=== PATIENT | female | born 1965 | race Caucasian/White ===

== ENCOUNTER 2020-02-16 17:45 | Inpatient (IN) ==
--- NOTE | 2020-02-16 18:25 | ERNOTE ---
Dyspnea - Date Date of Service: 02/16/20 - General Presenting Symptoms: shortness of breath, difficulty of breathing, wheezing Time Seen by Provider: 02/16/20 18:02 Source: patient Exam Limitations: no limitations - Immun/Allergies/Home Medications Immunizations: IMMUNIZATION HX Immunizations Up to Date Yes History of Influenza Vaccine Yes Hx Pneumococcal Vaccination Yes Allergies/Adverse Reactions: Allergies Penicillins Adverse Reaction (Verified 01/25/20 11:07) Home Medications: HOME MEDICATIONS Aspirin [Aspirin Chewable] 81 mg PO DAILY 06/28/15 [Last Taken Unknown] Calcium Carb, Citrate/Vit D3 [Calcium + D3 ER Tablet] 1 ea PO DAILY 06/28/15 [Last Taken Unknown] Mv,Calcium,Min/Iron/Folic/Vitk [Essential Woman Tablet] 1 ea PO DAILY 06/28/15 [Last Taken Unknown] anakinra 100 mg/0.67 mL subcutaneous syringe 100 mg SUBCUT DAILY 06/16/18 [Last Taken Unknown] hydrochlorothiazide 25 mg tablet See Rx Instructions .ROUTE .COMPLEX #30 unknown measurement unit code: tablet 01/03/20 [Last Taken Unknown] metformin 500 mg tablet See Rx Instructions .ROUTE .COMPLEX #120 unknown measurement unit code: tablet 01/19/20 [Last Taken Unknown] prednisone 10 mg tablet 10 mg PO DAILY #5 tab 01/22/20 [Last Taken Unknown] glipizide 10 mg tablet See Rx Instructions .ROUTE .COMPLEX #90 unknown measurement unit code: tablet 02/05/20 [Last Taken Unknown] levothyroxine 100 mcg tablet See Rx Instructions .ROUTE .COMPLEX #30 unknown measurement unit code: tablet 02/05/20 [Last Taken Unknown] lisinopril 5 mg tablet See Rx Instructions .ROUTE .COMPLEX #30 unknown measurement unit code: tablet 02/05/20 [Last Taken Unknown] paroxetine HCl 20 mg tablet See Rx Instructions .ROUTE .COMPLEX #30 unknown measurement unit code: tablet 02/05/20 [Last Taken Unknown] simvastatin 20 mg tablet See Rx Instructions .ROUTE .COMPLEX #30 unknown measurement unit code: tablet 02/05/20 [Last Taken Unknown] pioglitazone 15 mg tablet 15 mg PO DAILY #30 tab 02/09/20 [Last Taken Unknown] - History of Present Illness Narrative: patient tested positive for ordoñez virus on jan 24, has continued to be sob although has improved over last several days, comes to ed with o2 sats inmid 80's Severity: moderate Treatment GENERAL AGENT: none Initiating event: Reports: upper resp illness Frequency of episodes: Reports: no prior episodes Modifying Factors - (Improves): Reports: nothing Modifying Factors (Worsens): Reports: nothing Associated Symptoms-Dyspnea: Reports: cough, wheezing, dizziness, lightheadedness, weakness Review of Systems - Review of Systems Constitutional: Present: See HPI, weakness, fatigue, malaise EYE: Present: no symptoms reported ENT: Present: no symptoms reported Respiratory: Present: See HPI, shortness of breath, cough Cardiology: Present: no symptoms reported Gastrointestinal/Abdominal: Present: no symptoms reported Genitourinary: Present: no symptoms reported Musculoskeletal: Present: no symptoms reported Skin: Present: no symptoms reported Neurological: Present: no symptoms reported Endocrine: Present: no symptoms reported Hematologic/Lymphatic: Present: no symptoms reported Psych: Present: no symptoms reported All Other Systems: All systems neg except as marked Medical History (Last Reviewed 02/16/20 @ 17:49 by Jose Ortega RN) Rheumatoid arthritis (Chronic) Onset Date: ~2009 Morbid obesity (Chronic) Onset Date: Unknown Hypertension (Chronic) Onset Date: Unknown Hyperlipidemia (Chronic) Onset Date: ~2014 Type 2 diabetes mellitus (Chronic) Onset Date: Unknown Depression (Chronic) Onset Date: Unknown Surgical History: Surgical History (Last Reviewed 02/16/20 @ 17:49 by Jose Ortega RN) History of back surgery Onset Date: 11/02/14 L4 joon laminectomy and L4 L5 facetectomy. Left L4 L5 microdisectomy. Dr Mazariegos History of section Onset Date: Unknown 1987,1993,1999 History of laparoscopy Onset Date: ~2009 History of ovarian cystectomy Onset Date: 01/01/10 History of salpingectomy Onset Date: 01/01/10 left History of salpingo-oophorectomy Onset Date: 01/01/10 History of thyroid surgery Onset Date: ~2005 removed one lobe-pt unsure why History of tonsillectomy and adenoidectomy Onset Date: ~1969 History of wisdom tooth extraction Onset Date: ~1989 Family History: Family History (Last Reviewed 02/16/20 @ 17:49 by oJse Ortega RN) Father Cancer melanoma Mother Diabetes Hypertension Social History: (Last Reviewed 02/16/20 @ 17:49 by Jose Ortega RN) Social History: Marital status: lives independently: Yes Service: No Tobacco: Smoking Status: Never smoker Alcohol: alcohol intake: current alcohol intake frequency: a few times a month Substance Use: substance use type: does not use Dietary Habits: caffeine: Yes Physical Exam - Physical Exam General Appearance: Present: moderate distress, anxious Head Exam: Present: normal inspection, no evidence of injury Eye Exam: Normal inspection: bilateral, PERRL: bilateral, EOMI: bilateral Ears, Nose, Throat: Present: normal ENT inspection, normal pharynx Neck: Present: normal inspection, nontender Respiratory: Present: respiratory distress, crackles, rales, rhonchi Cardiovascular/Chest: Present: regular rate, rhythm, no murmur, normal peripheral pulses Gastrointestinal/Abdominal: Present: normal bowel sounds, nontender, nondistended, soft, no organomegaly Back Exam: Present: normal inspection, normal range of motion, no CVA tenderness, no vertebral tenderness Extremity Exam: Present: normal inspection, non-tender, normal range of motion, no edema Neurological Exam: Present: alert, oriented, normal mood/affect, no motor/sensory deficits Skin Exam: Present: normal color, warm/dry Lymphatic Exam: Present: no adenopathy Progress - Date and Time Seen: Date and Time: 02/16/20 19:16 condition unchanged case discussed with dr kurtz, accepted for admission - Results and Orders Patient's Lab Results:: I have reviewed the patient's lab results. - Vital Signs Vital Signs: Vital Signs 02/16/20 17:46 02/16/20 17:57 Temperature 37.2 C Pulse Rate 96 98 Respiratory Rate 30 H Blood Pressure 136/73 O2 Sat by Pulse Oximetry 86 L - EKG EKG #1 EKG: NSR - X-Ray X-Ray #1 X-Ray: chest Interpretation: Discd w/ radiologist - bilateral pneumonia worse on left - Progress/Reassessment Chief Complaint: Dyspnea Progress:: Unchanged - Transfer of Care Expected Disposition: Admit Plan - Plan Plan: to admit to hospital Departure Clinical Impression: COVID-19, Pneumonia - Departure Disposition: Short Term Hospital Inpatient Condition: Serious Referrals: Rachael Kyle MD [Primary Care Provider] -
[2020-02-16 18:26] LABS: Hematocrit 43.8 % (37.0-47.0); Hemoglobin 13.9 gm/dL (12.5-16.0); Mean Cell Volume 86.1 fl (78-100); Mean Corpuscular Hemoglobin 27.3 pg (27-31); Mean Corpuscular Hgb Conc 31.7 g/dl (32-36); Mean Platelet Volume 11.1 fl (8-12.5); Neutrophil # 3.5 K/mm3 (1.3-6.0); Neutrophil % 58.3 % (42-75.0); Platelet Count 186 K/mm3 (150-450); Red Blood Count 5.09 M/mm3 (4.2-5.4); Red Cell Distribution Width 14.6 % (11.5-14.0)
[2020-02-16 18:46] LABS: ALT 28 U/L (19-67); AST 21 U/L (0-48); Albumin * 2.6 gm/dl (3.4-5.0); Alkaline Phosphatase * 143 U/L (50-170); Anion Gap 11.5 mmol/L (6.8-13.8); BNP * 38 pg/mL (5-150); BUN/Creatinine Ratio 13.3 (9.0-21.6); Bilirubin, Total 0.3 mg/dL (0.0-1.1); Blood Urea Nitrogen 10 mg/dL (3-23); Ca. Corrected For Albumin 12.1 mg/dL (8.4-10.2); Calcium * 11.3 mg/dL (7.9-10.9); Carbon Dioxide 26.8 mmol/L (24-32.6); Chloride 102 mmol/L (97-106); Glucose * 247 mg/dL (70-110); Potassium 3.3 mmol/L (3.4-4.6); Sodium 137 mmol/L (132-142); Total Protein 6.9 gm/dL (6.2-8.2); Troponin I Less than 0.017 ng/mL (0.00-0.10)
[2020-02-16] MEDS ORDERED: DEXAMETHASONE SODIUM PHOSP/PF 10 MG/ML VIAL IV ONE (19:14)
[2020-02-16] MEDS: AZITHROMYCIN 500 MG in DEXTROSE 5 % IN WATER 250 ML IV SCH ×2 (19:41)
[2020-02-16] MEDS: NORMAL SALINE 1,000 ML IV PRN (19:42)
[2020-02-16] MEDS ORDERED: metFORMIN HCL 500 MG TABLET PO SCH (19:45)
[2020-02-16] MEDS ORDERED: LISINOPRIL 5 MG TABLET PO SCH ×2 (19:45→21:00)
[2020-02-16] MEDS ORDERED: glipiZIDE 10 MG TABLET PO SCH (19:45)
[2020-02-16] MEDS ORDERED: HYDROCHLOROTHIAZIDE 25 MG TABLET PO SCH (19:45)
[2020-02-16] MEDS ORDERED: PARoxetine HCL 20 MG TABLET PO SCH (19:45)
[2020-02-16] MEDS ORDERED: ANAKINRA 100 MG SQ SCH (21:00)
[2020-02-16] MEDS: ASPIRIN 81 MG TABLET.DR PO SCH (21:05)
[2020-02-16] MEDS: LORATADINE 10 MG TABLET PO SCH (21:05)
[2020-02-16] MEDS: INSULIN LISPRO 100 UNITS/ML VIAL SC SCH (21:06)
[2020-02-16] MEDS: metFORMIN HCL 500 MG TABLET PO SCH (21:06)
[2020-02-16] MEDS: PARoxetine HCL 20 MG TABLET PO SCH (21:07)
[2020-02-16] MEDS: SIMVASTATIN 20 MG TABLET PO SCH (21:08)
[2020-02-17] MEDS: NORMAL SALINE 1,000 ML IV PRN (04:06)
[2020-02-17] MEDS ORDERED: LEVOTHYROXINE SODIUM 100 MCG TABLET PO SCH (06:00)
--- NOTE | 2020-02-17 07:01 | HP ---
Chief Complaint - Chief Complaint Date of Service: 02/17/20 Time of Service: 06:59 Chief Complaint: dyspnea History of Present Illness: Patient with PMHx of rheumatoid arthritis on anikinra and prednisone, HTN, DM, obesity presents with dyspnea. She tested positive for COVID-19 on January 24, 23 days prior to admission. Medical History (Last Reviewed 02/16/20 @ 17:49 by Jose Ortega RN) Rheumatoid arthritis (Chronic) Onset Date: ~2009 Morbid obesity (Chronic) Onset Date: Unknown Hypertension (Chronic) Onset Date: Unknown Hyperlipidemia (Chronic) Onset Date: ~2014 Type 2 diabetes mellitus (Chronic) Onset Date: Unknown Depression (Chronic) Onset Date: Unknown Surgical History: Surgical History (Last Reviewed 02/16/20 @ 17:49 by Jose Ortega RN) History of back surgery Onset Date: 11/02/14 L4 joon laminectomy and L4 L5 facetectomy. Left L4 L5 microdisectomy. Dr Mazariegos History of section Onset Date: Unknown 1987,1993,1999 History of laparoscopy Onset Date: ~2009 History of ovarian cystectomy Onset Date: 01/01/10 History of salpingectomy Onset Date: 01/01/10 left History of salpingo-oophorectomy Onset Date: 01/01/10 History of thyroid surgery Onset Date: ~2005 removed one lobe-pt unsure why History of tonsillectomy and adenoidectomy Onset Date: ~1969 History of wisdom tooth extraction Onset Date: ~1989 Family History: Family History (Last Reviewed 02/16/20 @ 17:49 by Jose Ortega RN) Father Cancer melanoma Mother Diabetes Hypertension Social History: (Last Reviewed 02/16/20 @ 17:49 by Jose Ortega RN) Social History: Marital status: lives independently: Yes Service: No Tobacco: Smoking Status: Never smoker Alcohol: alcohol intake: current alcohol intake frequency: a few times a month Substance Use: substance use type: does not use Dietary Habits: caffeine: Yes Immunizations: IMMUNIZATION HX Immunizations Up to Date Yes History of Influenza Vaccine Yes Hx Pneumococcal Vaccination Yes Allergies/Adverse Reactions: Allergies Allergy/AdvReac Type Severity Reaction Status Date / Time Penicillins AdvReac Verified 01/25/20 11:07 Home Medications: HOME MEDICATIONS Aspirin [Aspirin Chewable] 81 mg PO HS 06/28/15 [Last Taken Unknown] anakinra 100 mg/0.67 mL subcutaneous syringe 100 mg SUBCUT HS 06/16/18 [Last Taken Unknown] pioglitazone 15 mg tablet 15 mg PO DAILY #30 tab 02/09/20 [Last Taken Unknown] Famotidine 20 mg PO HS 02/16/20 [Last Taken Unknown] Levothyroxine Sodium [Levo-T] 100 mcg PO DAILY 02/16/20 [Last Taken Unknown] Lisinopril [Zestril] 5 mg PO HS 02/16/20 [Last Taken Unknown] Loratadine 10 mg PO HS 02/16/20 [Last Taken Unknown] PARoxetine HCL [Paxil] 20 mg PO HS 02/16/20 [Last Taken Unknown] Simvastatin [Zocor] 20 mg PO HS 02/16/20 [Last Taken Unknown] metFORMIN HCL [Metformin HCl] 1,000 mg PO BID 02/16/20 [Last Taken Unknown] Hydrochlorothiazide [Hydrodiuril] 25 mg PO DAILY 02/17/20 [Last Taken Unknown] glipiZIDE [Glipizide] 10 mg PO TID 02/17/20 [Last Taken Unknown] Exam - Exam Vital Signs: Vital Signs - Last Taken Temp 36.9 C 02/17/20 02:35 Pulse 80 02/17/20 02:35 Resp 24 H 02/17/20 02:35 BP 156/72 H 02/17/20 02:35 Pulse Ox 93 02/17/20 02:35 Diagnostic Studies: Abnormal Lab Results 02/16/20 02/16/20 02/16/20 Range/Units 18:19 18:19 18:32 MCHC 31.7 L (32-36) g/dl RDW 14.6 H (11.5-14.0) % Immature Gran % (Auto) 0.70 H (0.001-0.429) % Immature Gran # (Auto) 0.04 H (0.000-0.0310) K/mm3 Monocytes % 15.0 H (0.0-9) % Eosinophils % 4.5 H (0.0-3.0) % Lymphocytes # 1.22 L (1.5-3.5) k/mm3 pO2 65.2 L (83.0-108.0) mmHg Total CO2 25.0 H (19.0-24.0) mmol/L ABG pH 7.47 H (7.35-7.45) Potassium 3.3 L (3.4-4.6) mmol/L Random Glucose 247 H (70-110) mg/dL Calcium 11.3 H (7.9-10.9) mg/dL Calcium Adj for Albumin 12.1 H (8.4-10.2) mg/dL Albumin 2.6 L (3.4-5.0) gm/dl Laboratory Results WBC 6.0 K/mm3 (4.0-10.5) 02/16/20 18:19 RBC 5.09 M/mm3 (4.2-5.4) 02/16/20 18:19 Hgb 13.9 gm/dL (12.5-16.0) 02/16/20 18:19 Hct 43.8 % (37.0-47.0) 02/16/20 18:19 MCV 86.1 fl (78-100) 02/16/20 18:19 MCH 27.3 pg (27-31) 02/16/20 18:19 MCHC 31.7 g/dl (32-36) L 02/16/20 18:19 RDW 14.6 % (11.5-14.0) H 02/16/20 18:19 Plt Count 186 K/mm3 (150-450) 02/16/20 18:19 MPV 11.1 fl (8-12.5) 02/16/20 18:19 Immature Gran % (Auto) 0.70 % (0.001-0.429) H 02/16/20 18:19 Immature Gran # (Auto) 0.04 K/mm3 (0.000-0.0310) H 02/16/20 18:19 Neutrophils % 58.3 % (42-75.0) 02/16/20 18:19 Lymphocytes % 20.5 % (20-51) 02/16/20 18:19 Monocytes % 15.0 % (0.0-9) H 02/16/20 18:19 Eosinophils % 4.5 % (0.0-3.0) H 02/16/20 18:19 Basophils % 1.0 % (0.0-1.0) 02/16/20 18:19 Nucleated RBC % 0.0 k/mm3 (0-1) 02/16/20 18:19 Neutrophils # 3.5 K/mm3 (1.3-6.0) 02/16/20 18:19 Lymphocytes # 1.22 k/mm3 (1.5-3.5) L 02/16/20 18:19 Monocytes # 0.9 k/mm3 (0.0-1.0) 02/16/20 18:19 Eosinophils # 0.3 k/mm3 (0.0-0.7) 02/16/20 18:19 Absolute Basophils 0.1 k/mm3 (0.0-0.1) 02/16/20 18:19 pCO2 33.7 mmHg (32.0-45.0) 02/16/20 18:32 pO2 65.2 mmHg (83.0-108.0) L 02/16/20 18:32 HCO3 23.9 mmol/L (21.0-28.0) 02/16/20 18:32 Total CO2 25.0 mmol/L (19.0-24.0) H 02/16/20 18:32 Base Excess 0.8 mmol/L (-2.0-3.0) 02/16/20 18:32 ABG pH 7.47 (7.35-7.45) H 02/16/20 18:32 ABG O2 Sat (Measured) 94.1 % (94.0-98.0) 02/16/20 18:32 Sodium 137 mmol/L (132-142) 02/16/20 18:19 Plasma Sodium 139 mmol/L (130-142) 02/16/20 18:19 Potassium 3.3 mmol/L (3.4-4.6) L 02/16/20 18:19 Chloride 102 mmol/L (97-106) 02/16/20 18:19 Carbon Dioxide 26.8 mmol/L (24-32.6) 02/16/20 18:19 Anion Gap 11.5 mmol/L (6.8-13.8) 02/16/20 18:19 BUN 10 mg/dL (3-23) 02/16/20 18:19 Creatinine 0.75 mg/dL (0.4-1.4) 02/16/20 18:19 Est GFR (Non-Af Amer) 86 mL/min (60-130) D 02/16/20 18:19 BUN/Creatinine Ratio 13.3 (9.0-21.6) 02/16/20 18:19 Random Glucose 247 mg/dL (70-110) H 02/16/20 18:19 Lactic Acid, Venous 1.7 mmol/L (0.4-2.0) 02/16/20 18:19 Calcium 11.3 mg/dL (7.9-10.9) H 02/16/20 18:19 Calcium Adj for Albumin 12.1 mg/dL (8.4-10.2) H 02/16/20 18:19 Total Bilirubin 0.3 mg/dL (0.0-1.1) 02/16/20 18: AST 21 U/L (0-48) 02/16/20 18: ALT 28 U/L (19-67) 02/16/20 18:19 Alkaline Phosphatase 143 U/L (50-170) 02/16/20 18:19 Troponin I Less than 0.017 ng/mL (0.00-0.10) 02/16/20 18: B-Natriuretic Peptide 38 pg/mL (5-150) 02/16/20 18:19 Total Protein 6.9 gm/dL (6.2-8.2) 02/16/20 18: Albumin 2.6 gm/dl (3.4-5.0) L 02/16/20 18:19
[2020-02-17] MEDS: INSULIN LISPRO 100 UNITS/ML VIAL SC SCH ×5 (07:15→20:48)
--- NOTE | 2020-02-17 07:29 | HP ---
Chief Complaint - Chief Complaint Date of Service: 02/17/20 Time of Service: 07:15 Chief Complaint: dyspnea History of Present Illness: Patient with PMHx of rheumatoid arthritis on anikinra, HTN, DM, obesity presents with dyspnea. She tested positive for COVID-19 on January 24, 23 days prior to admission. She was trying to recover at home. She was able to go back to work this past week, but developed increased shortness of breath. She was only able to take a couple of steps before getting very winded. In the ED, she had some tachypnea and brief tachycardia, with heart rate up to 109. She has been afebrile. Denies CP, sore throat, abdominal pain. She had some diarrhea yesterday. White blood cell count is not elevated at lactate is not elevated at 1.7. Blood pressure has been mildly high. Diffuse consolidations present on he r chest x-ray. She was requiring oxygen by nasal cannula, maximum of 2 L. Her oxygen was low in the ED at 86%. She was started on IV decadron, rocephin, and azithromycin. This morning on my exam, she reports not yet feeling better. Her oxygen requirement has decreased to 1 L via NC. She does not appear acutely ill on exam. Medical History (Last Reviewed 02/16/20 @ 17:49 by Jose Ortega RN) Rheumatoid arthritis (Chronic) Onset Date: ~2009 Morbid obesity (Chronic) Onset Date: Unknown Hypertension (Chronic) Onset Date: Unknown Hyperlipidemia (Chronic) Onset Date: ~2014 Type 2 diabetes mellitus (Chronic) Onset Date: Unknown Depression (Chronic) Onset Date: Unknown Surgical History: Surgical History (Last Reviewed 02/16/20 @ 17:49 by Jose Ortega RN) History of back surgery Onset Date: 11/02/14 L4 joon laminectomy and L4 L5 facetectomy. Left L4 L5 microdisectomy. Dr Mazariegos History of section Onset Date: Unknown 1987,1993,1999 History of laparoscopy Onset Date: ~2009 History of ovarian cystectomy Onset Date: 01/01/10 History of salpingectomy Onset Date: 01/01/10 left History of salpingo-oophorectomy Onset Date: 01/01/10 History of thyroid surgery Onset Date: ~2005 removed one lobe-pt unsure why History of tonsillectomy and adenoidectomy Onset Date: ~1969 History of wisdom tooth extraction Onset Date: ~1989 Family History: Family History (Last Reviewed 02/16/20 @ 17:49 by Jose Ortega RN) Father Cancer melanoma Mother Diabetes Hypertension Social History: (Last Reviewed 02/16/20 @ 17:49 by Jose Ortega RN) Social History: Marital status: lives independently: Yes Service: No Tobacco: Smoking Status: Never smoker Alcohol: alcohol intake: current alcohol intake frequency: a few times a month Substance Use: substance use type: does not use Dietary Habits: caffeine: Yes Review Of Systems (GEN) - Review of Systems Generalized/Overall Review: Present: Weight loss. Absent: Fever Respiratory: Present: Cough, Shortness of Breath Cardiac: Absent: Chest Pain, Edema Abdominal: Present: Diarrhea. Absent: Vomiting Genitourinary: Present: No Symptoms Reported Musculoskeletal: Present: Joint Pain Neurological: Present: No Symptoms Reported Skin: Present: No Symptoms Reported Immunizations: IMMUNIZATION HX Immunizations Up to Date Yes History of Influenza Vaccine Yes Hx Pneumococcal Vaccination Yes Allergies/Adverse Reactions: Allergies Allergy/AdvReac Type Severity Reaction Status Date / Time Penicillins AdvReac Verified 01/25/20 11:07 Home Medications: HOME MEDICATIONS Aspirin [Aspirin Chewable] 81 mg PO HS 06/28/15 [Last Taken Unknown] anakinra 100 mg/0.67 mL subcutaneous syringe 100 mg SUBCUT HS 06/16/18 [Last Taken Unknown] pioglitazone 15 mg tablet 15 mg PO DAILY #30 tab 02/09/20 [Last Taken Unknown] Famotidine 20 mg PO HS 02/16/20 [Last Taken Unknown] Levothyroxine Sodium [Levo-T] 100 mcg PO DAILY 02/16/20 [Last Taken Unknown] Lisinopril [Zestril] 5 mg PO HS 02/16/20 [Last Taken Unknown] Loratadine 10 mg PO HS 02/16/20 [Last Taken Unknown] PARoxetine HCL [Paxil] 20 mg PO HS 02/16/20 [Last Taken Unknown] Simvastatin [Zocor] 20 mg PO HS 02/16/20 [Last Taken Unknown] metFORMIN HCL [Metformin HCl] 1,000 mg PO BID 02/16/20 [Last Taken Unknown] Hydrochlorothiazide [Hydrodiuril] 25 mg PO DAILY 02/17/20 [Last Taken Unknown] glipiZIDE [Glipizide] 10 mg PO TID 02/17/20 [Last Taken Unknown] Exam - Exam Vital Signs: Vital Signs - Last Taken Temp 36.4 C 02/17/20 07:05 Pulse 94 02/17/20 07:05 Resp 24 H 02/17/20 07:05 BP 133/70 02/17/20 07:05 Pulse Ox 92 L 02/17/20 07:05 Constitutional: Present: Alert, Cooperative, No distress, Morbidly obese Respiratory: Present: no respiratory distress, No rales, No wheezing, other - wearing 1 L via NC Cardiovascular/Chest: Present: regular rate, rhythm Abdomen: Present: soft, nontender, obese Extremity: Absent: lower extremity edema Neurologic: Present: normal mood/affect Eye contact: Present: cooperative, good eye contact Diagnostic Studies: Abnormal Lab Results 02/16/20 02/16/20 02/16/20 Range/Units 18:19 18:19 18:32 MCHC 31.7 L (32-36) g/dl RDW 14.6 H (11.5-14.0) % Immature Gran % (Auto) 0.70 H (0.001-0.429) % Immature Gran # (Auto) 0.04 H (0.000-0.0310) K/mm3 Monocytes % 15.0 H (0.0-9) % Eosinophils % 4.5 H (0.0-3.0) % Lymphocytes # 1.22 L (1.5-3.5) k/mm3 pO2 65.2 L (83.0-108.0) mmHg Total CO2 25.0 H (19.0-24.0) mmol/L ABG pH 7.47 H (7.35-7.45) Potassium 3.3 L (3.4-4.6) mmol/L Random Glucose 247 H (70-110) mg/dL Calcium 11.3 H (7.9-10.9) mg/dL Calcium Adj for Albumin 12.1 H (8.4-10.2) mg/dL Albumin 2.6 L (3.4-5.0) gm/dl Laboratory Results WBC 6.0 K/mm3 (4.0-10.5) 02/16/20 18:19 RBC 5.09 M/mm3 (4.2-5.4) 02/16/20 18:19 Hgb 13.9 gm/dL (12.5-16.0) 02/16/20 18:19 Hct 43.8 % (37.0-47.0) 02/16/20 18:19 MCV 86.1 fl (78-100) 02/16/20 18:19 MCH 27.3 pg (27-31) 02/16/20 18:19 MCHC 31.7 g/dl (32-36) L 02/16/20 18:19 RDW 14.6 % (11.5-14.0) H 02/16/20 18:19 Plt Count 186 K/mm3 (150-450) 02/16/20 18:19 MPV 11.1 fl (8-12.5) 02/16/20 18:19 Immature Gran % (Auto) 0.70 % (0.001-0.429) H 02/16/20 18:19 Immature Gran # (Auto) 0.04 K/mm3 (0.000-0.0310) H 02/16/20 18:19 Neutrophils % 58.3 % (42-75.0) 02/16/20 18:19 Lymphocytes % 20.5 % (20-51) 02/16/20 18:19 Monocytes % 15.0 % (0.0-9) H 02/16/20 18:19 Eosinophils % 4.5 % (0.0-3.0) H 02/16/20 18:19 Basophils % 1.0 % (0.0-1.0) 02/16/20 18:19 Nucleated RBC % 0.0 k/mm3 (0-1) 02/16/20 18:19 Neutrophils # 3.5 K/mm3 (1.3-6.0) 02/16/20 18:19 Lymphocytes # 1.22 k/mm3 (1.5-3.5) L 02/16/20 18:19 Monocytes # 0.9 k/mm3 (0.0-1.0) 02/16/20 18:19 Eosinophils # 0.3 k/mm3 (0.0-0.7) 02/16/20 18:19 Absolute Basophils 0.1 k/mm3 (0.0-0.1) 02/16/20 18:19 pCO2 33.7 mmHg (32.0-45.0) 02/16/20 18:32 pO2 65.2 mmHg (83.0-108.0) L 02/16/20 18:32 HCO3 23.9 mmol/L (21.0-28.0) 02/16/20 18:32 Total CO2 25.0 mmol/L (19.0-24.0) H 02/16/20 18:32 Base Excess 0.8 mmol/L (-2.0-3.0) 02/16/20 18:32 ABG pH 7.47 (7.35-7.45) H 02/16/20 18:32 ABG O2 Sat (Measured) 94.1 % (94.0-98.0) 02/16/20 18:32 Sodium 137 mmol/L (132-142) 02/16/20 18:19 Plasma Sodium 139 mmol/L (130-142) 02/16/20 18:19 Potassium 3.3 mmol/L (3.4-4.6) L 02/16/20 18:19 Chloride 102 mmol/L (97-106) 02/16/20 18:19 Carbon Dioxide 26.8 mmol/L (24-32.6) 02/16/20 18:19 Anion Gap 11.5 mmol/L (6.8-13.8) 02/16/20 18:19 BUN 10 mg/dL (3-23) 02/16/20 18:19 Creatinine 0.75 mg/dL (0.4-1.4) 02/16/20 18:19 Est GFR (Non-Af Amer) 86 mL/min (60-130) D 02/16/20 18:19 BUN/Creatinine Ratio 13.3 (9.0-21.6) 02/16/20 18:19 Random Glucose 247 mg/dL (70-110) H 02/16/20 18:19 Lactic Acid, Venous 1.7 mmol/L (0.4-2.0) 02/16/20 18:19 Calcium 11.3 mg/dL (7.9-10.9) H 02/16/20 18:19 Calcium Adj for Albumin 12.1 mg/dL (8.4-10.2) H 02/16/20 18:19 Total Bilirubin 0.3 mg/dL (0.0-1.1) 02/16/20 18:19 AST 21 U/L (0-48) 02/16/20 18:19 ALT 28 U/L (19-67) 02/16/20 18:19 Alkaline Phosphatase 143 U/L (50-170) 02/16/20 18:19 Troponin I Less than 0.017 ng/mL (0.00-0.10) 02/16/20 18:19 B-Natriuretic Peptide 38 pg/mL (5-150) 02/16/20 18:19 Total Protein 6.9 gm/dL (6.2-8.2) 02/16/20 18:19 Albumin 2.6 gm/dl (3.4-5.0) L 02/16/20 18:19 Assessment/Plan - Assessment/Plan (1) Pneumonia Assessment: Likely a secondary bacterial infection after her COVID-19. She is out of the window to give remdesivir. She has been started on Rocephin and azithromycin, and decadron. She is afebrile and her oxygen requirements are decreasing. She is still mildly tachypneic this morning, at 24. Goals are for her to be able to walk to the bathroom and wean from O2. Anticipate DC in 24-48 hours. The combination of anikinra for RA, diabetes, and morbid obesity makes her immunocompromised. Problem: Acute Qualifiers: Laterality: bilateral (2) Type 2 diabetes mellitus Assessment: She takes metformin, pioglitazone, glipizide at home. Her glucose was greater than 200 on admission, so temporary sliding scale insulin with humalog added. Her glucose is likely to be higher with an acute illness and steroid administration. Problem: Chronic (3) Rheumatoid arthritis Assessment: Continue home anikinra. Problem: Chronic (4) Hypertension Assessment: BP mildly high overnight, at 156/72. Continue home lisinopril Problem: Chronic (5) Hypothyroidism Assessment: Continue home levothyroxine. Problem: Chronic (6) Morbid obesity Problem: Chronic (7) Hyperlipidemia Assessment: Continue home statin. Problem: Chronic (8) COVID-19 Assessment: Tested positive for COVID on January 24. She is completed her quarantine window. I anticipate the combination of having a COVID infection, anakinra, diabetes, morbid obesity decreased her immune system enough to where she developed a secondary pneumonia. Problem: Resolved
[2020-02-17] MEDS: LEVOTHYROXINE SODIUM 100 MCG TABLET PO SCH (08:09)
[2020-02-17] MEDS: glipiZIDE 10 MG TABLET PO SCH ×3 (08:09→17:17)
[2020-02-17] MEDS: PIOGLITAZONE HCL 15 MG TABLET PO SCH (08:09)
[2020-02-17] MEDS: metFORMIN HCL 500 MG TABLET PO SCH ×2 (08:10→17:17)
[2020-02-17] MEDS: HYDROCHLOROTHIAZIDE 25 MG TABLET PO SCH (08:10)
[2020-02-17] MEDS ORDERED: metFORMIN HCL 500 MG TABLET PO SCH ×2 (09:00)
[2020-02-17] MEDS ORDERED: DEXAMETHASONE SODIUM PHOSP/PF 10 MG/ML VIAL IV ONE (18:00)
[2020-02-17] MEDS ORDERED: DEXAMETHASONE SODIUM PHOSPHATE 4 MG/ML VIAL ONE (18:47)
[2020-02-17] MEDS: AZITHROMYCIN 500 MG in DEXTROSE 5 % IN WATER 250 ML IV SCH ×2 (18:55)
[2020-02-17] MEDS: ASPIRIN 81 MG TABLET.DR PO SCH (20:40)
[2020-02-17] MEDS: LORATADINE 10 MG TABLET PO SCH (20:41)
[2020-02-17] MEDS: SIMVASTATIN 20 MG TABLET PO SCH (20:42)
[2020-02-17] MEDS ORDERED: SIMVASTATIN 20 MG TABLET PO SCH (21:00)
[2020-02-17] MEDS ORDERED: PARoxetine HCL 20 MG TABLET PO SCH (21:00)
[2020-02-17] MEDS ORDERED: FAMOTIDINE 20 MG TABLET PO SCH (21:00)
[2020-02-17] MEDS ORDERED: LISINOPRIL 5 MG TABLET PO SCH ×2 (21:00→21:30)
[2020-02-17] MEDS: PARoxetine HCL 20 MG TABLET PO SCH (21:27)
[2020-02-18] MEDS: INSULIN LISPRO 100 UNITS/ML VIAL SC SCH (06:57)
[2020-02-18] MEDS: LEVOTHYROXINE SODIUM 100 MCG TABLET PO SCH (06:58)
[2020-02-18] MEDS: glipiZIDE 10 MG TABLET PO SCH ×2 (06:58→11:11)
[2020-02-18] MEDS: metFORMIN HCL 500 MG TABLET PO SCH (08:19)
[2020-02-18] MEDS: PIOGLITAZONE HCL 15 MG TABLET PO SCH (08:20)
[2020-02-18] MEDS: HYDROCHLOROTHIAZIDE 25 MG TABLET PO SCH (08:20)
--- NOTE | 2020-02-18 10:51 | DS ---
(1) Pneumonia Problem: Acute Qualifiers: Laterality: bilateral (2) Type 2 diabetes mellitus Problem: Chronic (3) Rheumatoid arthritis Problem: Chronic (4) Hypertension Problem: Chronic (5) Hypothyroidism Problem: Chronic (6) Morbid obesity Problem: Chronic (7) Hyperlipidemia Problem: Chronic (8) COVID-19 Problem: Resolved Date of Discharge:: 02/18/20 Hospital Course: Patient with PMHx of rheumatoid arthritis on anikinra, HTN, DM, obesity presents with dyspnea. She tested positive for COVID-19 on January 24, 23 days prior to admission. She was able to go back to work this past week, but developed increased shortness of breath. She was only able to take a couple of steps before getting very winded. In the ED, she had some tachypnea and brief tachycardia, with heart rate up to 109. Afebrile. Denies CP, sore throat, abdominal pain. Had some diarrhea the day prior to admission. White blood cell count is not elevated at 6.0, and lactate is not elevated at 1.7. Blood pressure has been mildly high. Diffuse consolidations present on her chest x- ray. She was requiring oxygen by nasal cannula, maximum of 2 L. Her oxygen was low in the ED at 86%. She was started on IV decadron, rocephin, and azithromycin for pneumonia, felt to be secondary to her recent COVID infection and immunosuppression from anikinra, DM, and obesity. She was given sliding scale insulin for elevated glucose. She is unable to administer glucose at home due to her job. Anticipate her glucose is higher due to her acute illness and steroid administration. She was weaned from oxygen the first day of admission. On the day of DC, she felt comfortable leaving. Will DC with cefdinir, azithromycin, and prednisone. Procedures Performed: none Results and Findings: Pending Mircobiology Results 02/16/20 18:50 Blood Blood Culture - Preliminary NO GROWTH 24 HOURS 02/16/20 18:19 Blood Blood Culture - Preliminary NO GROWTH 24 HOURS Lab Pending Results 02/16/20 18:19: WBC 6.0, RBC 5.09, Hgb 13.9, Hct 43.8, MCV 86.1, MCH 27.3, MCHC 31.7 L, RDW 14.6 H, Plt Count 186, MPV 11.1, Immature Gran % (Auto) 0.70 H, Immature Gran # (Auto) 0.04 H, Neutrophils % 58.3, Lymphocytes % 20.5, Monocytes % 15.0 H, Eosinophils % 4.5 H, Basophils % 1.0, Nucleated RBC % 0.0, Neutrophils # 3.5, Lymphocytes # 1.22 L, Monocytes # 0.9, Eosinophils # 0.3, Absolute Basophils 0.1 02/16/20 18:19: Sodium 137, Plasma Sodium 139, Potassium 3.3 L, Chloride 102, Carbon Dioxide 26.8, Anion Gap 11.5, BUN 10, Creatinine 0.75, Est GFR (Non-Af Amer) 86 D, BUN/Creatinine Ratio 13.3, Random Glucose 247 H, Calcium 11.3 H, Calcium Adj for Albumin 12.1 H, Total Bilirubin 0.3, AST 21, ALT 28, Alkaline Phosphatase 143, Troponin I Less than 0.017, B-Natriuretic Peptide 38, Total Protein 6.9, Albumin 2.6 L 02/16/20 18:19: Lactic Acid, Venous 1.7 02/16/20 18:32: pCO2 33.7, pO2 65.2 L, HCO3 23.9, Total CO2 25.0 H, Base Excess 0.8, ABG pH 7.47 H, ABG O2 Sat (Measured) 94.1 Discharge Location: Home Disposition: Home self-care Condition: Good Discharge Activity: Activity as tolerated Discharge Diet: General/regular food Referrals: Rachael Kyle MD [Primary Care Provider] - 02/21/20 Prescriptions (Any new or edited meds): Azithromycin 250 mg PO DAILY 3 Days #3 tab Transmission Status: Pending to [facility] Cefdinir 300 mg PO BID #6 cap Transmission Status: Pending to [facility] predniSONE [Prednisone] 2 tab PO DAILY #10 tab Transmission Status: Pending to [facility] Complete Home Medications List: Complete Home Medication List: Aspirin [Aspirin Chewable] 81 mg PO HS 06/28/15 anakinra 100 mg/0.67 mL subcutaneous syringe 100 mg SUBCUT HS 06/16/18 pioglitazone 15 mg tablet 15 mg PO DAILY #30 tab 02/09/20 Famotidine 20 mg PO HS 02/16/20 Levothyroxine Sodium [Levo-T] 100 mcg PO DAILY 02/16/20 Lisinopril [Zestril] 5 mg PO HS 02/16/20 Loratadine 10 mg PO HS 02/16/20 PARoxetine HCL [Paxil] 20 mg PO HS 02/16/20 Simvastatin [Zocor] 20 mg PO HS 02/16/20 metFORMIN HCL [Metformin HCl] 1,000 mg PO BID 02/16/20 Hydrochlorothiazide [Hydrodiuril] 25 mg PO DAILY 02/17/20 glipiZIDE [Glipizide] 10 mg PO TID 02/17/20 Azithromycin 250 mg PO DAILY 3 Days #3 tab 02/18/20 Cefdinir 300 mg PO BID #6 cap 02/18/20 predniSONE [Prednisone] 2 tab PO DAILY #10 tab 02/18/20 Forms: Patient Portal Registration
[2020-02-18 12:10] VITALS: BP 133/66
== END 2020-02-18 11:50 | disposition home or self-care (01) | DRG 195 ==
LOC: ER 17:45 → MS 19:16
PROVIDERS: ADMIT Family Medicine; ATTEND Family Medicine